=== PATIENT | male | born 1985 | race Native Hawaiian/Other Pacific Islander ===

== ENCOUNTER 2024-05-12 10:59 | Emergency (ER) | payer OTHER ==
[~2024-05-12] VITALS: Ht 182.9 cm; Wt 96.8 kg
[2024-05-12 12:22] VITALS: PULSE 74; RESP 17; O2SAT 96
[2024-05-12 13:04] VITALS: BP 133/79; PULSE 83; RESP 16; TEMP 98.9; O2SAT 97
[2024-05-12] MEDS: KETOROLAC TROMETH 30 MG/ML 1ML VIAL IM ONE (13:09)
[2024-05-12] MEDS ORDERED: NAPR-746 PO (13:31)
== END 2024-05-12 13:41 | disposition home or self-care (01) ==
LOC: ER 10:59
DX: G89.29 Other chronic pain (principal); M54.59 Other low back pain; Z79.1 Long term (current) use of non-steroidal anti-inflammatories (NSAID); Z88.8 Allergy status to other drugs, medicaments and biological substances
CPT/HCPCS: 72070; 72100; 96372; 99284; J1885